=== PATIENT | female | born 1945 | race Two or more races ===

== ENCOUNTER 2020-04-24 11:42 | Outpatient (CLI) | payer MEDICARE, SELFPAY ==
--- NOTE | 2020-04-24 11:55 | US_ITS ---
WS: [id number] RIGHT DIGITAL MAMMOGRAPHY WITH CAD CLINICAL INFORMATION: ABNORMAL MAMMOGRAM COMPARISON: March 26, 2020 also examination TECHNIQUE: 2 views of the right breast were obtained. FINDINGS: The right breast is composed of heterogeneous fibroglandular density tissue, which can limit the dete ction of small underlying mass lesions. Stable asymmetric density right craniocaudal view outer breas t mid depth. Ultrasound is pending. ULTRASOUND BREAST RIGHT TECHNIQUE: Ultrasound right breast focused area of concern. CLINICAL INFORMATION: ABNORMAL MAMMOGRAM COMPARISON: None. FINDINGS: Ultrasound right breast 6 to 12:00 position. Normal underlying breast tissue. Ductal ectasia. No cyst ic or solid lesions. No lesions to target for biopsy. Recommend return to annual screening mammograph y. US/US breast RT limited* [id number] IMPRESSION: BI-RADS: 2-Benign FOLLOW UP: 1 Year Follow-up Recommend return to annual screening mammography.
== END 2020-04-24 11:43 | disposition home or self-care (01) ==
LOC: RADSHAW 11:52
PROVIDERS: PCP Family Medicine; Visit Provider Family Medicine
DX: R92.8 Other abnormal and inconclusive findings on diagnostic imaging of breast (principal)
CPT/HCPCS: 76642; 77065

== ENCOUNTER → 2020-08-03 16:08 | Outpatient (BNVA) | payer MEDICARE, SELFPAY | PROVIDERS: PCP Family Medicine; Visit Provider Specialist | DX: G56.92 Unspecified mononeuropathy of left upper limb (principal); G58.7 Mononeuritis multiplex; R20.0 Anesthesia of skin; M54.2 Cervicalgia; R29.898 Other symptoms and signs involving the musculoskeletal system | CPT/HCPCS: 95886; 95909; 99202 ==